=== PATIENT | male | born 1935 | race Caucasian/White ===

== ENCOUNTER 2021-11-29 00:19 | Day surgery (SDC) | payer MEDICARE, BC, SELFPAY ==
[2021-11-23 12:41] VITALS: BMI 28.5
--- NOTE | 2021-11-23 13:12 | PC.NURSE ---
Report to the Outpatient Waiting Room, entrance under the green pavilion located off [facility], at time __1000 on date __11/29/21 . OR Time: ___1200 . - You and your visitor will be asked a series of questions to screen for COVID 19 for your protection. - A mask is required within the hospital. Preoperative COVID Testing Requirements: No COVID Test needed if: (proof is required; if not received patient will have Rapid Test prior to entry) - Patient has received COVID Vaccine at least 14 days prior to procedure date or - Patient has positive COVID test result within last 90 days of surgery date. COVID Test needed if above criteria is not met If not COVID vaccinated a COVID test must be conducted within 72 hours of surgery and patient is asked to isolate self from time of testing until procedure. You will go to the [facility] for your COVID testing. The [facility] is located at the corner of [address] [facility]. You will only be called if COVID results are positive and your surgeon may reschedule your elective surgery date. Patients may have clear liquids (water, carbonated beverages, clear teas, apple juice) until 3 hours prior to surgery (0900 AM) with a maximum of 20 ounces. - No food from midnight until time of surgery - Infants may have breast milk until 4 hours before surgery, formula 6 hours prior to surgery. - Children will be allowed to drink immediately following surgery. If applicable, please bring a bottle or sippy cup to assist with drinking. Juice, water, soda, and popsicles are readily available. For infants on formula, please bring formula the day of surgery. Pacifiers are allowed. Take the following medications with a SIP of water the morning of surgery: _AMIODARONE, CARVEDILOL, NIFEDIPINE_ Medications to discontinue per physician __ELIQUIS, 2 DAYS PRIOR TO SURGERY_ Date to take last dose____11/26/21 Please no make-up, nail iranian, hairspray, perfume, deodorant, or body powder the day of surgery. No jewelry (including any body piercings) or valuables the day of surgery, leave them at home. Please take a shower or bath the night before, or the morning of, surgery with an antibacterial soap. Wear comfortable, loose fitting clothing. Children are encouraged to wear pajamas. - Jewelry must be removed prior to entering the operating room. Rings and piercings that are not removed may be cut off. - The hospital will not accept responsibility for valuables. - Please leave all valuables, including medications, at home the day of surgery. If you are going home after surgery, a licensed water truck driver must drive you home. - NO public transportation without another adult. - We recommend that an adult stay with you for 24 hours following discharge. - We also recommend that you do not drive, make important decision, drink alcoholic beverages, or take any drugs that were not prescribed by your health care provider for at least 24 hours after your discharge time. For Pediatric surgeries, we recommend two adults accompany the child home (only one inside the building at this time). One visitor will be allowed to accompany the patient into the hospital. Patients visitor will be instructed to remain with patient at all times or leave the building. We will allow the visitor to come back to the postoperative area when patient is ready. Follow any additional instructions given to you from your surgeon. Telephone instructions given to ___PT and asked if any additional questions and then verbalized understanding. Patient advised to call surgeon office or pre surgery nurse liaison [phone] if any additional questions.
--- NOTE | 2021-11-28 14:52 | WPDANESEPPF ---
Anes - Initial Pre Proc Eval Procedure: Operation Date: 11/29/21 12:00 Proposed Procedures p Right Knee Arthroscopy, Partial Lateral Meniscectomy and Debridement - Livan Colon MD <Harish Nettles MD - Last Filed: 12/07/21 13:57> Date/Time: 11/28/21 14:52 <Harish Nettles MD - Last Filed: 12/07/21 13:57> Surgeon: Livan Colon MD <Harish Nettles MD - Last Filed: 12/07/21 13:57> Pre Op Diagnosis: right knee pain <Harish Nettles MD - Last Filed: 12/07/21 13:57> Patient Data Age: 86 Gender: M Height: 1.83 m Weight: 95.45 kg <Harish Nettles MD - Last Filed: 12/07/21 13:57> Allergies Allergy/AdvReac Type Severity Reaction Status Date / Time No Known Allergies Allergy Verified 11/29/21 10:23 <Harish Nettles MD - Last Filed: 12/07/21 13:57> Home Medications Medication Instructions Recorded Confirmed Type Metamucil 2 cap QAM 11/23/21 11/29/21 History amiodarone 200 mg QAM 11/23/21 11/29/21 History apixaban [Eliquis] 2.5 mg BID 11/23/21 11/29/21 History carvedilol 12.5 mg BID 11/23/21 11/29/21 History esomeprazole magnesium [Nexium] 40 mg PO DAILY 11/23/21 11/29/21 History furosemide 20 mg QAM 11/23/21 11/29/21 History polyethylene glycol 3350 [Miralax] 17 g PO DAILY 11/23/21 11/29/21 History pravastatin 40 mg HS 11/23/21 11/29/21 History hydralazine 25 mg PO BID 11/29/21 11/29/21 History <Harish Nettles MD - Last Filed: 12/07/21 13:57> Patient hx anesthesia problems: none <Ron Serra DO - Last Filed: 11/29/21 11:08> Family hx anesthesia problems: none <Ron Serra DO - Last Filed: 11/29/21 11:08> Results Review: All pre-operative results and documents have been reviewed as part of the pre-operative evaluation. <Harish Nettles MD - Last Filed: 12/07/21 13:57> [facility] Past Medical History Medical History: Medical History (Updated 11/28/21 @ 14:52 by Harish Nettles MD) Atrial fibrillation Chronic kidney disease (CKD) stage G1/A2, glomerular filtration rate (GFR) equal to or greater than 90 mL/min/1.73 square meter and albuminuria creatinine ratio between 30-299 mg/g GERD (gastroesophageal reflux disease) Hyperlipidemia Hypertension <Harish Nettles MD - Last Filed: 12/07/21 13:57> Social History Social History: Social History Smoking status: Never smoker Second hand tobacco smoke exposure: No Alcohol intake: current Alcohol use details: 1-2 BEER'S A MONTH Substance use: never Substance use type: does not use Living arrangements: with family Spiritual care concerns: No <Harish Nettles MD - Last Filed: 12/07/21 13:57> Anes - Eval Final PreProcedure Day of Procedure 11/28/21 14:52 <Harish Nettles MD - Last Filed: 12/07/21 13:57> Patient weight: overweight <Harish Nettles MD - Last Filed: 12/07/21 13:57> overweight <Ron Serra DO - Last Filed: 11/29/21 11:08> Heart: regular rate and rhythm <Harish Nettles MD - Last Filed: 12/07/21 13:57> regular rate and rhythm <Ron Serra DO - Last Filed: 11/29/21 11:08> Lungs: clear to auscultation <Harish Nettles MD - Last Filed: 12/07/21 13:57> clear to auscultation and normal air movement <Ron Serra DO - Last Filed: 11/29/21 11:08> Airway: Mallampati scale class II <Harish Nettles MD - Last Filed: 12/07/21 13:57> Mallampati scale class II <Ron Serra DO - Last Filed: 11/29/21 11:08> Neurological: alert and oriented <Harish Nettles MD - Last Filed: 12/07/21 13:57> alert and oriented <Ron Serra DO - Last Filed: 11/29/21 11:08> Last oral intake: >/= 8 hours <Harish Nettles MD - Last Filed: 12/07/21 13:57> >/= 8 hours <Ron Serra DO - Last Filed: 11/29/21 11:08> ASA classification: III <Harish Nettles MD - Last Filed: 12/07/21 13:57> II <Ron Mascorro
[2021-11-29] VITALS (7 sets, daily range): BP systolic 136–172; BP diastolic 70–81; PULSE 53–66; RESP 10–18; TEMP 36–36.6; O2SAT 99–100
[2021-11-29] MEDS: ACETAMINOPHEN 500 MG TABLET 1000 MG PO (10:30)
--- NOTE | 2021-11-29 11:09 | WPDHPUPDATE1 ---
History and Physical Update Update Date/Time: 11/29/21 11:09 History and Physical has been reviewed, including an updated exam of the patient. There are NO changes in the patient's condition. Risks, benefits, and alternatives have been discussed and questions answered. Patient agrees to proceed with procedure.
[2021-11-29] MEDS: LACTATED RINGERS 1,000 ML 30 ML IV CONT ×2 (11:22→13:06)
[2021-11-29] MEDS: KETOROLAC 15 MG/ML VIAL (*BKC) IV PUSH (11:22)
[2021-11-29] MEDS: ceFAZolin 2 GM/D5W 50 ML 2 GM/50 ML BAG IVPB (12:00)
[2021-11-29] MEDS: MORPHINE SULFATE (*CRX) 4 MG/ML INJ XX (12:30)
[2021-11-29] MEDS: BUPIVACAINE HCL 0.25% PF 30 ML VIAL INFILTRATE (12:31)
--- NOTE | 2021-11-29 13:01 | W.PM.PROC2 ---
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 Description of Procedure The patient was identified and brought to the OR. The patient was positioned on the OR table with an arthroscopy leg love and a well leg love. The patient was sterilely prepped and draped. A surgical time in was performed and we confirmed that this was the correct side, the scooby I had placed on the knee in the holding area was visible. Appropriate IV antibiotics were administered. All the equipment necessary for the proposed procedure was available. The surgical team was polled and all agreed to proceed. Medial and lateral horizontal portals were established with an 11 blade scalpel. The skin was infiltrated with the arthroscopic fluid which has a 1:300,000 epinephrine dilution. An arthroscope was placed into the suprapatellar pouch. A lateral outflow cannula was inserted. Visualization of the undersurface of the patella and the suprapatellar pouch was performed. The following findings were seen. The suprapatellar pouch had significant synovitis, lipstick red. 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 The gutters had osteophytes bilaterally and synovitis. No loose bodies seen. The scope was then placed into the medial compartment by flowing down the medial gutter and the following findings were seen. The medial compartment had a posterior horn radial tear. This was debrided and sculpted to a C shape. An abrasion chondroplasty of the medial femoral condyle was performed. All of the loose cartilage fragments were debrided. The intercondylar notch was visualized and the following findings were noted. The ACL and PCL were grossly intact with some partial degenerative changes noted. The lateral joint space and the lateral gutter were visualized. The following findings were seen. The lateral meniscus was torn in a degenerative manner. A subtotal menisectomy was performed back to a stable border. Attention was then turned to the lateral compartment and the meniscus was probed and now found to be stable. Once all the surgical procedures were completed the knee was copiously irrigated. All remaining fragments captured in the outflow were removed. Dry sterile dressings were applied to the portals. Intra-articular injection of Morphine was performed when appropriate. The subcutaneous areas around the portals was infiltrated with Marcaine if appropriate. The patient tolerated the procedure well and returned to the recovery room in stable condition. Drains No Packing No Pathology None sent Complications No immediate complications Condition Stable Disposition PACU
== END 2021-11-29 14:46 | disposition home or self-care (01) ==
PROVIDERS: PCP Family Medicine; Visit Provider Specialist
PROC: (CPT 29870; principal; 2021-11-29 12:00)
DX: M94.8X6 Other specified disorders of cartilage, lower leg (principal); M65.861 Other synovitis and tenosynovitis, right lower leg; M23.321 Other meniscus derangements, posterior horn of medial meniscus, right knee; M23.361 Other meniscus derangements, other lateral meniscus, right knee; M25.561 Pain in right knee; I48.91 Unspecified atrial fibrillation; I12.9 Hypertensive chronic kidney disease with stage 1 through stage 4 chronic kidney disease, or unspecified chronic kidney disease; N18.1 Chronic kidney disease, stage 1; E78.5 Hyperlipidemia, unspecified; K21.9 Gastro-esophageal reflux disease without esophagitis; Z79.01 Long term (current) use of anticoagulants
CPT/HCPCS: 29880; 29879; A9270; J0690; J1100; J1885; J2270; J2274; J2405; J2704; J3010; J7120